=== PATIENT | male | born 1945 | race Caucasian/White ===

== ENCOUNTER 2021-02-26 17:45 | Inpatient (IN) | payer MEDICARE, OTHER ==
[2021-02-26] MEDS ORDERED: SODIUM CHLORIDE 0.9% 1,000 ML IV STA (18:56)
--- NOTE | 2021-02-26 19:05 | ED ---
General Adult HPI - General Chief complaint: Shortness of Breath Stated complaint: Covid+/low o2/sent by pcp Time Seen by Provider: 02/26/21 18:00 Source: patient, family, RN notes reviewed, old records reviewed Mode of arrival: wheelchair Limitations: no limitations - History of Present Illness Initial comments: This is a 75-year-old male who presents emergency Department stating he's been feeling extremely fatigued ever since he had cold. 11 days ago. Patient states he didn't have any symptoms at that time he got tested because his got test ed. Patient states his eventually . Patient states she's very anxious and paranoid about the disease. Patient states she's not having any pain anywhere he states there is mild shortness of breath. Patient states he feels so fatigued he finds that even difficult to get out of bed. Patient states it's not weakness is just tired. Patient denies headache patient denies numbness weakness. Patient denies lightheadedness dizziness or near syncopal episode. - Related Data Allergies Allergy/AdvReac Type Severity Reaction Status Date / Time carisoprodol [From [facility]] Allergy Anaphylaxis Verified 02/26/21 17:56 Review of Systems ROS Statement: Those systems with pertinent positive or pertinent negative responses have been documented in the HPI. ROS Other: All systems not noted in ROS Statement are negative. Past Medical History Past Medical History: Unable to Obtain History of Any Multi-Drug Resistant Organisms: None Reported Past Surgical History: Unable to Obtain Past Psychological History: No Psychological Hx Reported Smoking Status: Never smoker Past Alcohol Use History: None Reported Past Drug Use History: None Reported General Exam - General Exam Comments Initial Comments: GENERAL: Patient is well-developed and well-nourished. Patient is nontoxic and well- hydrated and is in mild distress. ENT: Neck is soft and supple. No significant lymphadenopathy is noted. Oropharynx is clear. Moist mucous membranes. Neck has full range of motion without eliciting any pain. EYES: The sclera were anicteric and conjunctiva were pink and moist. Extraocular movements were intact and pupils were equal round and reactive to light. Eyelids were unremarkable. PULMONARY: Unlabored respirations. Good breath sounds bilaterally. No audible rales rhonchi or wheezing was noted. CARDIOVASCULAR: There is a regular rate and rhythm without any murmurs gallops or rubs. ABDOMEN: Soft and nontender with normal bowel sounds. SKIN: Skin is clear with no lesions or rashes and otherwise unremarkable. NEUROLOGIC: Patient is alert and oriented x3. Cranial nerves II through XII are grossly intact. Motor and sensory are also intact. Normal speech, volume and content. Symmetrical smile. MUSCULOSKELETAL: Normal extremities with adequate strength and full range of motion. No lower extremity swelling or edema. No calf tenderness. LYMPHATICS: No significant lymphadenopathy is noted PSYCHIATRIC: Normal psychiatric evaluation. Limitations: no limitations Course Vital Signs 02/26/21 02/26/21 02/26/21 17:54 18:09 19:02 Temperature 97.6 F Pulse Rate 60 55 L Respiratory 18 16 18 Rate Blood Pressure 121/70 173/91 O2 Sat by Pulse 95 95 Oximetry Medical Decision Making - Medical Decision Making EKG shows sinus bradycardia 54 bpm MS interval is 342 QRS is 98 QT interval is 488 QTC is 462. Patient's EKG shows no ST segment elevation or depression. Chest x-ray shows bilateral pneumonia. I think bacterial secondary to the white count and the left shift. I spoke with Dr. Albert he agreed to admit the patient admitted the patient I wrote admitting orders - Lab Data Result diagrams: 02/26/21 19:00 02/26/21 19:00 Lab Results 02/26/21 02/26/21 02/26/21 Range/Units 19:00 19:00 19:00 WBC 11.3 H (3.8-10.6) k/uL RBC 4.64 (4.30-5.90) m/uL Hgb 14.2 (13.0-17.5) gm/dL Hct 44.9 (39.0-53.0) % MCV 96.8 (80.0-100.0) fL MCH 30.6 (25.0-35.0) pg MCHC 31.6 (31.0-37.0) g/dL RDW 13.7 (11.5-15.5) % Plt Count 356 (150-450) k/uL MPV 6.8 Neutrophils % 86 % Lymphocytes % 7 % Monocytes % 5 % Eosinophils % 1 % Basophils % 0 % Neutrophils # 9.7 H (1.3-7.7) k/uL Lymphocytes # 0.8 L (1.0-4.8) k/uL Monocytes # 0.6 (0-1.0) k/uL Eosinophils # 0.1 (0-0.7) k/uL Basophils # 0.0 (0-0.2) k/uL Sodium 136 L (137-145) mmol/L Potassium 4.2 (3.5-5.1) mmol/L Chloride 107 (98-107) mmol/L Carbon Dioxide 22 (22-30) mmol/L Anion Gap 7 mmol/L BUN 26 H (9-20) mg/dL Creatinine 1.45 H (0.66-1.25) mg/dL Est GFR (CKD-EPI)AfAm 54 (>60 ml/min/1.73 sqM) Est GFR (CKD-EPI)NonAf 47 (>60 ml/min/1.73 sqM) Glucose 107 H (74-99) mg/dL Calcium 9.0 (8.4-10.2) mg/dL Magnesium 2.1 (1.6-2.3) mg/dL Total Bilirubin 0.7 (0.2-1.3) mg/dL AST 27 (17-59) U/L ALT 22 (4-49) U/L Alkaline Phosphatase 97 (38-126) U/L Troponin I <0.012 (0.000-0.034) ng/mL Total Protein 5.9 L (6.3-8.2) g/dL Albumin 3.1 L (3.5-5.0) g/dL Disposition Clinical Impression: Pneumonia, Renal insufficiency Disposition: ADMITTED IP TO THIS HOSP Referrals: Rodrigo Pace MD [Primary Care Provider] - 1-2 days Time of Disposition: 20:15
[2021-02-26 19:16] LABS: Basophils % (A) 0 %; Eosinophils # (A) 0.1 k/uL (0-0.7); Eosinophils % (A) 1 %; HCT 44.9 % (39.0-53.0); HGB 14.2 gm/dL (13.0-17.5); Lymphocytes # (A) 0.8 k/uL (1.0-4.8); Lymphocytes % (A) 7 %; MCH 30.6 pg (25.0-35.0); MCHC 31.6 g/dL (31.0-37.0); MCV 96.8 fL (80.0-100.0); Mean Platelet Volume 6.8; Monocytes # (A) 0.6 k/uL (0-1.0); Monocytes % (A) 5 %; Neutrophils # (A) 9.7 k/uL (1.3-7.7); Neutrophils % (A) 86 %; Platelet Count 356 k/uL (150-450); RBC 4.64 m/uL (4.30-5.90); RDW 13.7 % (11.5-15.5); WBC 11.3 k/uL (3.8-10.6)
[2021-02-26 19:31] LABS: Albumin 3.1 g/dL (3.5-5.0); Magnesium 2.1 mg/dL (1.6-2.3); Potassium 4.2 mmol/L (3.5-5.1); Total Bilirubin 0.7 mg/dL (0.2-1.3); Total Protein 5.9 g/dL (6.3-8.2)
[2021-02-26 19:37] LABS: Appearance,Urine Clear (Clear); Bilirubin,Urine Negative (Negative); Blood,Urine Negative (Negative); Color,Urine Yellow; Glucose,Urine (UA) Negative (Negative); Ketones,Urine Negative (Negative); Leukocyte Esterase,Urine Negative (Negative); Nitrite,Urine Negative (Negative); Protein,Urine Trace (Negative); Specific Gravity,Urine 1.023 (1.001-1.035); Urobilinogen,Urine <2.0 mg/dL (<2.0)
--- NOTE | 2021-02-26 20:00 | XR ---
EXAM: XR Chest, 2 Views CLINICAL HISTORY: ITS.REASON XR Reason: difficulty breathing TECHNIQUE: Frontal and lateral views of the chest. COMPARISON: None FINDINGS: Hardware: None. Lungs/pleura: Patchy opacities bilaterally. No pleural effusion or pneumothorax. Heart/mediastinum: Borderline size of the cardiac silhouette. Soft tissues: Unremarkable. Bones: No acute fracture. Degenerative changes of the spine. Degenerative changes of the left shoulder partially visualized. Upper abdomen: Normal. IMPRESSION: Patchy opacities bilaterally, concerning for an infectious/inflammatory process.
[2021-02-26] MEDS ORDERED: cefTRIAXone IN SWFI 1,000 MG/10 ML SYRINGE IVP STA (20:06)
[2021-02-26] MEDS ORDERED: PNEUMONIA PROTOCOL UTILIZED 1 EACH MISC PO PRN (20:15)
[2021-02-26] MEDS ORDERED: AZITHROMYCIN 500 MG in SODIUM CHLORIDE 0.9% 250 ML IVPB STA (20:15)
--- NOTE | 2021-02-27 01:22 | P.HPIM ---
History of Present Illness H&P Date: 02/26/21 Patient is a 75-year-old male with a PMH of hypertension, hyperlipidemia, BPH, and recently diagnosed Covid 19 presented to the emergency room with complaints of fatigue and lethargy. Patient notes that he was tested for Covid initially 11 days ago after his had tested positive who subsequently a few days later. He notes that he was initially asymptomatic but that over the past few days has had gradually worsening fatigue when he is no longer able to perform his ADLs. He denied experiencing cough, chest pain, shortness of breath, fever, anosmia, nausea, or vomiting. He also denied focal weakness but reports that he does not feel he that he has the energy to get out of bed. He also denied headaches, visual disturbances, dizziness, leg pain, leg swelling, or abdominal pain. In the emergency room, the patient underwent an extensive evaluation with vitals BP 121/70, pulse 60, SpO2 95% on room air, and a temperature of 97.6F. Chest x-ray revealed patchy bilateral opacities. EKG revealed sinus bradycardia with first-degree AV block at 54 bpm along with the prolonged QT. Laboratory evaluation was remarkable for WBC count 11.3, BUN 26, creatinine 1.45, troponin less than 0.012, and an unremarkable UA. Review of Systems Pertinent positives and negatives as discussed in HPI, a complete review of systems was performed and all other systems are negative. Past Medical History Past Medical History: Unable to Obtain History of Any Multi-Drug Resistant Organisms: None Reported Past Surgical History: Unable to Obtain Past Psychological History: No Psychological Hx Reported Smoking Status: Never smoker Past Alcohol Use History: None Reported Past Drug Use History: None Reported Medications and Allergies Home Medications Medication Instructions Recorded Confirmed Type Amiodarone HCl [Pacerone] 100 mg PO DAILY 02/26/21 02/26/21 History Atorvastatin [Lipitor] 40 mg PO HS 02/26/21 02/26/21 History Clopidogrel Bisulfate [Plavix] 75 mg PO DAILY 02/26/21 02/26/21 History Isosorbide Mononitrate ER [Imdur] 30 mg PO DAILY 02/26/21 02/26/21 History Metoprolol Succinate [Toprol XL] 25 mg PO DAILY 02/26/21 02/26/21 History Omeprazole 20 mg PO DAILY 02/26/21 02/26/21 History Ranolazine [Ranolazine ER] 500 mg PO BID 02/26/21 02/26/21 History Tamsulosin HCl [Flomax] 0.4 mg PO HS 02/26/21 02/26/21 History buPROPion HCL [Wellbutrin XL] 300 mg PO DAILY 02/26/21 02/26/21 History Allergies Allergy/AdvReac Type Severity Reaction Status Date / Time carisoprodol [From [facility]] Allergy Anaphylaxis Verified 02/26/21 20:32 Physical Exam Vitals: Vital Signs Temp Pulse Resp BP Pulse Ox 02/26/21 21:01 72 16 149/66 95 02/26/21 19:02 55 L 18 173/91 95 02/26/21 18:09 16 02/26/21 17:54 97.6 F 60 18 121/70 95 Intake and Output 02/26/21 02/26/21 02/26/21 06:59 14:59 22:59 Other: Weight 120.202 kg General: non toxic, no distress, appears at stated age, obese Derm: no unusual rashes/lesions no unusual ecchymoses, warm, dry Head: atraumatic, normocephalic, symmetric Eyes: EOMI, no lid lag, anicteric sclera, pupils equal round reactive to light ENT: Nose and ears atraumatic, no thrush, no pharyngeal erythema Neck: No thyromegaly, no cervical lymphadenopathy, trachea midline, supple Mouth: no lip lesion, mucus membranes moist Cardiovascular: S1S2 reg, no murmur, positive posterior tibial pulse bilateral, no edema, capillary refill less than 2 seconds Lungs: CTA bilateral, no rhonchi, no rales , no accessory muscle use Abdominal: soft, nontender to palpation, no guarding, no appreciable organomegaly, normal bowel sounds Ext: no gross muscle atrophy, muscle strength 5 out of 5 in all 4 extremities grossly, no contractures, Neuro: CN II-XI grossly intact, light touch intact all 4 extremities, finger to nose within normal limits, Psych: Alert, oriented, appropriate affect Results CBC & Chem 7: 02/26/21 19:00 02/26/21 19:00 Labs: Abnormal Lab Results - Last 24 Hours (Table) 02/26/21 02/26/21 02/26/21 Range/Units 19:00 19:00 19:31 WBC 11.3 H (3.8-10.6) k/uL Neutrophils # 9.7 H (1.3-7.7) k/uL Lymphocytes # 0.8 L (1.0-4.8) k/uL Sodium 136 L (137-145) mmol/L BUN 26 H (9-20) mg/dL Creatinine 1.45 H (0.66-1.25) mg/dL Glucose 107 H (74-99) mg/dL Total Protein 5.9 L (6.3-8.2) g/dL Albumin 3.1 L (3.5-5.0) g/dL Urine Protein Trace H (Negative) Assessment and Plan Plan: Lethargy, bilateral pneumonia, likely secondary to COVID -Not requiring supplemental oxygen -Patient does not qualify for Decadron, Remdesivir, or Tocilizumab -Monitor inflammatory markers -Obtain procalcitonin -C/w Azithromycin and Ceftriaxone pending procalcitonin levels Kidney injury, acute versus chronic -Monitor BMP -IV fluids Chronic conditions: Hypertension, hyperlipidemia, BPH -Continue home meds DVT prophylaxis -Lovenox The patient is admitted with an anticipated greater than 2 midnight stay for evaluation of lethargy CODE STATUS: Full Code Discussed with: Patient Anticipated discharge date: 02/[address]: Home A total of 40 minutes was spent on the care of this complex patient more than 50% of the time was spent in counseling and care coordination.
[2021-02-27] MEDS: SODIUM CHLORIDE 0.9% 1,000 ML IV SCH ×2 (02:22→17:33)
--- NOTE | 2021-02-27 07:20 | XR ---
EXAMINATION TYPE: XR chest 1V DATE OF EXAM: 02/27/2021 COMPARISON: 02/26/2021 HISTORY: 75-year-old male COVID pneumonia TECHNIQUE: Single frontal view of the chest is obtained. FINDINGS: Heart upper limits of normal in size. Patchy bilateral opacities, right greater than left show no sig nificant change. No pleural effusion. Loss of the subacromial space on the right compatible with tax compliance agent keren full-thickness rotator cuff tear. Degenerative shoulder. IMPRESSION: Continued patchy bilateral pulmonary pneumonia.
[2021-02-27 07:44] LABS: ALT 18 U/L (4-49); AST 23 U/L (17-59); African American GFR (CKD) 62 (>60 ml/min/1.73 sqM); Albumin 2.6 g/dL (3.5-5.0); Alkaline Phosphatase 80 U/L (38-126); Anion Gap 7 mmol/L; Blood Urea Nitrogen 23 mg/dL (9-20); C Reactive Protein 4.7 mg/dL (<1.0); Calcium 8.7 mg/dL (8.4-10.2); Carbon Dioxide 19 mmol/L (22-30); Chloride 112 mmol/L (98-107); Globulin 2.5 g/dL; Glucose 83 mg/dL (74-99); Non-African American GFR(CKD) 54 (>60 ml/min/1.73 sqM); Potassium 4.4 mmol/L (3.5-5.1); Sodium 138 mmol/L (137-145); Total Bilirubin 0.5 mg/dL (0.2-1.3); Total Protein 5.1 g/dL (6.3-8.2)
[2021-02-27] MEDS: CLOPIDOGREL 75 MG TAB PO SCH (08:58)
[2021-02-27] MEDS: ISOSORBIDE MONONITRATE ER 30 MG TAB.ER.24H PO SCH (08:59)
[2021-02-27] MEDS: CHOLECALCIFEROL 25 MCG (1000 IU) TABLET PO SCH (08:59)
[2021-02-27] MEDS: ASCORBIC ACID 500 MG TAB PO SCH (08:59)
[2021-02-27] MEDS: PANTOPRAZOLE 40 MG TABLET PO SCH (08:59)
[2021-02-27] MEDS: ZINC SULFATE 220 MG CAP PO SCH (08:59)
[2021-02-27] MEDS: AMIODARONE 100 MG TAB PO SCH (08:59)
[2021-02-27] MEDS ORDERED: ENOXAPARIN 40 MG/0.4 ML SYRINGE SQ SCH (09:00)
[2021-02-27 09:46] LABS: HCT 40.2 % (39.6-50.0); HGB 12.9 g/dL (13.0-17.0); MCH 30.9 pg (27.0-32.0); MCHC 32.1 g/dL (32.0-37.0); MCV 96.2 fL (80.0-97.0); Mean Platelet Volume 9.2 fL (9.5-12.2); Platelet Count 297 X 10*3/uL (140-440); RBC 4.18 X 10*6/uL (4.40-5.60); RDW 13.1 % (11.5-14.5); WBC 8.84 X 10*3/uL (4.50-10.00)
--- NOTE | 2021-02-27 10:42 | P.PN ---
Subjective Progress Note Date: 02/27/21 Patient is complaining of shortness of breath this morning. He is satting 92- 93% on room air. Lungs are clear to auscultation bilaterally. He denies any significant cough. He appeared anxious. Objective - Vital Signs Vital signs: Vital Signs Temp 98.5 F 02/27/21 09:52 Pulse 61 02/27/21 09:52 Resp 18 02/27/21 09:52 BP 161/92 02/27/21 09:52 Pulse Ox 92 L 02/27/21 09:52 Intake & Output 02/26/21 02/27/21 02/27/21 18:59 06:59 18:59 Output Total 350 Balance -350 Weight 120.202 kg 120.202 kg Output: Urine 350 Other: Voiding Method Urinal Urinal - Exam General: The patient is awake and alert, in no distress Eye: there is normal conjunctiva bilaterally. Neck: The neck is supple, there is no JVD. Cardiovascular: Normal S1-S2, no S3-S4, no murmurs. Respiratory: Lungs clear to auscultation bilaterally Gastrointestinal: Abdomen is soft, nontender Musculoskeletal: There is no pedal edema. Neurological:. Speech is normal. Skin: Skin is warm and dry - Labs CBC & Chem 7: 02/27/21 06:13 02/27/21 06:13 Labs: Abnormal Lab Results - Last 24 Hours (Table) 02/26/21 02/26/21 02/26/21 Range/Units 19:00 19:00 19:31 WBC 11.3 H (3.8-10.6) k/uL RBC (4.40-5.60) X 10*6/uL Hgb (13.0-17.0) g/dL MPV (9.5-12.2) fL Neutrophils # 9.7 H (1.3-7.7) k/uL Lymphocytes # 0.8 L (1.0-4.8) k/uL Sodium 136 L (137-145) mmol/L Chloride (98-107) mmol/L Carbon Dioxide (22-30) mmol/L BUN 26 H (9-20) mg/dL Creatinine 1.45 H (0.66-1.25) mg/dL Glucose 107 H (74-99) mg/dL C-Reactive Protein (<1.0) mg/dL Total Protein 5.9 L (6.3-8.2) g/dL Albumin 3.1 L (3.5-5.0) g/dL Urine Protein Trace H (Negative) 02/27/21 02/27/21 Range/Units 06:13 06:13 WBC (3.8-10.6) k/uL RBC 4.18 L (4.40-5.60) X 10*6/uL Hgb 12.9 L (13.0-17.0) g/dL MPV 9.2 L (9.5-12.2) fL Neutrophils # (1.3-7.7) k/uL Lymphocytes # (1.0-4.8) k/uL Sodium (137-145) mmol/L Chloride 112 H (98-107) mmol/L Carbon Dioxide 19 L (22-30) mmol/L BUN 23 H (9-20) mg/dL Creatinine 1.30 H (0.66-1.25) mg/dL Glucose (74-99) mg/dL C-Reactive Protein 4.7 H (<1.0) mg/dL Total Protein 5.1 L (6.3-8.2) g/dL Albumin 2.6 L (3.5-5.0) g/dL Urine Protein (Negative) Assessment and Plan Assessment: This is a 75-year-old male with past medical history noted below who presented to the emergency room with complaint of fatigue and lethargy. Patient was evaluated in the ER and admitted to the hospital for further management of his medical problems noted below. 1. COVID-19 pneumonia: Provision of test done at outside facility 11 days prior to presentation. I would order repeat screening test. No evidence of hypoxia. Patient is not a candidate for Remdesivir. Continue vitamin C, vitamin D, zinc, and melatonin. Chest x-ray with bilateral infiltrate. Concern about underlying bacterial pneumonia covered with IV ceftriaxone awaiting pro-calcitonin 2. Acute kidney injury with suspected underlying CK D, continue gentle IV fluid hydration with normal saline at 75 mL per hour. Repeat lab work in the morning. 3. Coronary artery disease with history of stent placement, continue medical management 4. Paroxysmal atrial fibrillation on anticoagulation with Eliquis 5. Chronic medical problems: Hyperlipidemia, BPH Today, I reviewed his medication list and lab work results. I asked pharmacy to confirm Eliquis as one of his home medication. Continue current regimen otherwise. Supportive care. Awaiting inflammatory markers.
[2021-02-27] MEDS: buPROPion XL 300 MG TAB.ER.24H PO SCH (11:15)
[2021-02-27] MEDS: METOPROLOL SUCCINATE (ER) 25 MG TAB.ER.24H PO SCH (11:15)
[2021-02-27] MEDS: RANOLAZINE 500 MG TAB.ER.12H PO SCH ×2 (13:30→19:47)
[2021-02-27] MEDS: ALBUTEROL HFA INHALER INHALATION PRN ×2 (16:33→20:52)
[2021-02-27] MEDS: APIXABAN 5 MG TAB PO SCH (19:45)
[2021-02-27] MEDS ORDERED: MELATONIN 5 MG TABLET PO SCH (21:00)
[2021-02-27] MEDS ORDERED: TAMSULOSIN 0.4 MG CAP.ER.24H PO SCH (21:00)
[2021-02-27] MEDS ORDERED: ATORVASTATIN 40 MG TAB PO SCH (21:00)
[2021-02-28 00:51] LABS: Ferritin 127.5 ng/mL (22.0-322.0)
[2021-02-28] MEDS: SODIUM CHLORIDE 0.9% 1,000 ML IV SCH ×2 (05:29→17:16)
[2021-02-28] MEDS: ALBUTEROL HFA INHALER INHALATION PRN ×2 (07:14→11:07)
[2021-02-28] MEDS: CLOPIDOGREL 75 MG TAB PO SCH (08:32)
[2021-02-28] MEDS: PANTOPRAZOLE 40 MG TABLET PO SCH (08:32)
[2021-02-28] MEDS: RANOLAZINE 500 MG TAB.ER.12H PO SCH (08:32)
[2021-02-28] MEDS: APIXABAN 5 MG TAB PO SCH (08:33)
[2021-02-28] MEDS: ZINC SULFATE 220 MG CAP PO SCH (08:33)
[2021-02-28] MEDS: ISOSORBIDE MONONITRATE ER 30 MG TAB.ER.24H PO SCH (08:33)
[2021-02-28] MEDS: buPROPion XL 300 MG TAB.ER.24H PO SCH (08:33)
[2021-02-28] MEDS: CHOLECALCIFEROL 25 MCG (1000 IU) TABLET PO SCH (08:33)
[2021-02-28] MEDS: ASCORBIC ACID 500 MG TAB PO SCH (08:33)
[2021-02-28] MEDS: AMIODARONE 100 MG TAB PO SCH (08:33)
[2021-02-28] MEDS: METOPROLOL SUCCINATE (ER) 25 MG TAB.ER.24H PO SCH (08:35)
[2021-02-28 08:36] LABS: African American GFR (CKD) 69 (>60 ml/min/1.73 sqM); Anion Gap 6 mmol/L; Blood Urea Nitrogen 19 mg/dL (9-20); Calcium 8.9 mg/dL (8.4-10.2); Carbon Dioxide 21 mmol/L (22-30); Chloride 109 mmol/L (98-107); Glucose 83 mg/dL (74-99); Non-African American GFR(CKD) 60 (>60 ml/min/1.73 sqM); Potassium 4.1 mmol/L (3.5-5.1); Sodium 136 mmol/L (137-145)
--- NOTE | 2021-02-28 15:22 | P.DS ---
Providers Date of admission: 02/26/21 20:15 Expected date of discharge: 02/28/21 Attending physician: Sandra Albert MD Primary care physician: Rodrigo Bhatia [facility] Course: This is a 75-year-old male with past medical history noted below who presented to the emergency room with complaint of fatigue and lethargy. Patient was evaluated in the ER and admitted to the hospital for further management of his medical problems noted below. 1. COVID-19 pneumonia: original test done at outside facility 11 days prior to presentation. repeat screening test here in the hospital was negative. No evidence of hypoxia. CRP only slightly elevated. Patient is not a candidate for Remdesivir. Continue vitamin C, vitamin D, zinc, and melatonin. Chest x-ray with bilateral infiltrate. Patient was started on antibiotics with concern about underlying pneumonia but progressive troponin was normal. No indication for antibiotic at this time. 2. Acute kidney injury with suspected underlying CKD, resolved with IV fluid hydration. Creatinine back to normal. 3. Coronary artery disease with history of stent placement, continue medical management 4. Paroxysmal atrial fibrillation on anticoagulation with Eliquis 5. Chronic medical problems: Hyperlipidemia, BPH Patient will be discharged in a stable condition. He is able to ambulate with no difficulty and no hypoxia. Continue albuterol as needed at home. Patient Condition at Discharge: Stable Plan - Discharge Summary Discharge Rx Participant: No New Discharge Prescriptions: New Zinc Sulfate [Orazinc] 220 mg PO DAILY #30 cap Apixaban [Eliquis] 5 mg PO BID tab Melatonin 5 mg PO HS #30 tablet Albuterol Inhaler [Ventolin Hfa Inhaler] 2 puff INHALATION RT-QID PRN #1 inhaler PRN Reason: Shortness Of Breath Or Wheezing Ascorbic Acid [Vitamin C] 1,000 mg PO DAILY #30 tab Cholecalciferol [Vitamin D3 (25 Mcg = 1000 Iu)] 75 mcg PO DAILY #60 tablet Continue Omeprazole 20 mg PO DAILY Clopidogrel Bisulfate [Plavix] 75 mg PO DAILY Atorvastatin [Lipitor] 40 mg PO HS Ranolazine [Ranolazine ER] 500 mg PO BID Amiodarone HCl [Pacerone] 100 mg PO DAILY buPROPion HCL [Wellbutrin XL] 300 mg PO DAILY Metoprolol Succinate [Toprol XL] 25 mg PO DAILY Isosorbide Mononitrate ER [Imdur] 30 mg PO DAILY Tamsulosin HCl [Flomax] 0.4 mg PO HS Discharge Medication List Amiodarone HCl [Pacerone] 100 mg PO DAILY 02/26/21 [History] Atorvastatin [Lipitor] 40 mg PO HS 02/26/21 [History] Clopidogrel Bisulfate [Plavix] 75 mg PO DAILY 02/26/21 [History] Isosorbide Mononitrate ER [Imdur] 30 mg PO DAILY 02/26/21 [History] Metoprolol Succinate [Toprol XL] 25 mg PO DAILY 02/26/21 [History] Omeprazole 20 mg PO DAILY 02/26/21 [History] Ranolazine [Ranolazine ER] 500 mg PO BID 02/26/21 [History] Tamsulosin HCl [Flomax] 0.4 mg PO HS 02/26/21 [History] buPROPion HCL [Wellbutrin XL] 300 mg PO DAILY 02/26/21 [History] Albuterol Inhaler [Ventolin Hfa Inhaler] 2 puff INHALATION RT-QID PRN #1 inhaler 02/28/21 [Rx] Apixaban [Eliquis] 5 mg PO BID tab 02/28/21 [Rx] Ascorbic Acid [Vitamin C] 1,000 mg PO DAILY #30 tab 02/28/21 [Rx] Cholecalciferol [Vitamin D3 (25 Mcg = 1000 Iu)] 75 mcg PO DAILY #60 tablet 02/28/21 [Rx] Melatonin 5 mg PO HS #30 tablet 02/28/21 [Rx] Zinc Sulfate [Orazinc] 220 mg PO DAILY #30 cap 02/28/21 [Rx] Follow up Appointment(s)/Referral(s): Rodrigo Pace MD [Primary Care Provider] - 1-2 days Discharge Disposition: HOME SELF-CARE
[2021-02-28 17:38] VITALS: BP 144/89; PULSE 60; RESP 16; TEMP 98.2
== END 2021-02-28 19:45 | disposition home or self-care (01) | DRG 177 ==
LOC: EC 17:45 → 4SSUR 20:15
PROVIDERS: ADMIT Internal Medicine; ATTEND Internal Medicine
DX: U07.1 COVID-19 (principal); J12.82 Pneumonia due to coronavirus disease 2019; N17.9 Acute kidney failure, unspecified; I48.0 Paroxysmal atrial fibrillation; N40.0 Benign prostatic hyperplasia without lower urinary tract symptoms; E78.5 Hyperlipidemia, unspecified; I44.0 Atrioventricular block, first degree; I25.10 Atherosclerotic heart disease of native coronary artery without angina pectoris; I12.9 Hypertensive chronic kidney disease with stage 1 through stage 4 chronic kidney disease, or unspecified chronic kidney disease; N18.9 Chronic kidney disease, unspecified; Z79.01 Long term (current) use of anticoagulants; Z79.02 Long term (current) use of antithrombotics/antiplatelets; Z79.899 Other long term (current) drug therapy; Z95.5 Presence of coronary angioplasty implant and graft; Z88.8 Allergy status to other drugs, medicaments and biological substances
CPT/HCPCS: 36415; 71045; 71046; 80048; 80053; 81003; 82728; 83735; 84145; 84484; 85025; 85027; 86140; 87040; 87070; 87205; 87635; 93005; 94640; 99285

== ENCOUNTER 2024-05-27 00:02 | Inpatient (IN) | payer MEDICARE, OTHER ==
--- NOTE | 2024-05-27 00:37 | ED ---
Abdominal Pain HPI - General Chief Complaint: Abdominal Pain Stated Complaint: Abdominal Pain, Vomiting Time Seen by Provider: 05/27/24 00:30 Source: patient, RN notes reviewed, old records reviewed Mode of arrival: ambulatory Limitations: no limitations - History of Present Illness Initial Comments: This is a 79-year-old male to the ER for evaluation abdominal pain severe abdominal pain here in the ER with nausea vomiting history of gastric bypass hi story of severe abdominal pain history of recurrent abdominal pain concern for recurrent small bowel obstruction MD Complaint: abdominal pain, other (Nausea vomiting) -: hour(s), days(s) Location: diffuse, epigastric, suprapubic Radiation: epigastric, suprapubic Migration to: epigastric, suprapubic Severity: moderate Severity scale (1-10): 6 Quality: aching, fullness Consistency: constant Improves With: nothing Worsens With: nothing Context: recent surgery/procedure Associated Symptoms: nausea, vomiting Treatments Prior to Arrival: other - Related Data Home Medications Medication Instructions Recorded Confirmed Amiodarone HCl [Pacerone] 100 mg PO DAILY 02/26/21 05/27/24 Atorvastatin [Lipitor] 40 mg PO HS 02/26/21 05/27/24 Metoprolol Succinate [Toprol XL] 25 mg PO DAILY 02/26/21 05/27/24 Omeprazole 20 mg PO BID 02/26/21 05/27/24 Tamsulosin HCl [Flomax] 0.4 mg PO HS 02/26/21 05/27/24 Cholecalciferol [Vitamin D3 (125 125 mcg PO DAILY 05/27/24 05/27/24 Mcg = 5000 Iu)] Fluticasone Nasal [place] [Flonase 2 spr EA NOSTRIL DAILY PRN 05/27/24 05/27/24 Nasal [place]] Ipratropium Esko 0.06%Nasal 2 spray EA NOSTRIL TID PRN 05/27/24 05/27/24 [Atrovent Nasal 0.06%] Mirtazapine [Remeron] 15 mg PO HS 05/27/24 05/27/24 Plecanatide [Trulance] 3 mg PO HS 05/27/24 05/27/24 Vitamin A(Unknown Dose) 1 cap PO DAILY 05/27/24 05/27/24 buPROPion HCL [Wellbutrin XL] 150 mg PO DAILY 05/27/24 05/27/24 hydrOXYzine HCL [Atarax] 25 mg PO HS 05/27/24 05/27/24 traZODone HCL [Desyrel] 50 mg PO HS 05/27/24 05/27/24 Previous Rx's Medication Instructions Recorded Apixaban [Eliquis] 5 mg PO BID tab 02/28/21 Zinc Sulfate [Orazinc] 220 mg PO DAILY #30 cap 02/28/21 Allergies Allergy/AdvReac Type Severity Reaction Status Date / Time carisoprodol [From Soma] Allergy Anaphylaxis Verified 05/27/24 11:45 Review of Systems ROS Statement: Those systems with pertinent positive or pertinent negative responses have been documented in the HPI. ROS Other: All systems not noted in ROS Statement are negative. Past Medical History Past Medical History: No Reported History, Coronary Artery Disease (CAD), Chest Pain / Angina History of Any Multi-Drug Resistant Organisms: None Reported Past Surgical History: Unable to Obtain, Bariatric Surgery, Heart Catheterizati on With Stent, Joint Replacement Additional Past Surgical History / Comment(s): right knee replacement, bariatric 2000, bowel blockage x2 Past Anesthesia/Blood Transfusion Reactions: No Reported Reaction Past Psychological History: No Psychological Hx Reported Smoking Status: Never smoker Past Alcohol Use History: None Reported Past Drug Use History: None Reported General Exam Limitations: no limitations General appearance: alert, in no apparent distress, anxious, in distress Head exam: Present: atraumatic, normocephalic, normal inspection Eye exam: Present: normal appearance, PERRL, EOMI. Absent: scleral icterus, conjunctival injection, periorbital swelling ENT exam: Present: normal exam, mucous membranes moist Neck exam: Present: normal inspection. Absent: tenderness, meningismus, lymphadenopathy Respiratory exam: Present: normal lung sounds bilaterally. Absent: respiratory distress, wheezes, rales, rhonchi, stridor Cardiovascular Exam: Present: regular rate, normal rhythm, normal heart sounds. Absent: systolic murmur, diastolic murmur, rubs, gallop, clicks GI/Abdominal exam: Present: soft, normal bowel sounds. Absent: distended, tenderness, guarding, rebound, rigid Extremities exam: Present: normal inspection, full ROM, normal capillary refill. Absent: tenderness, pedal edema, joint swelling, calf tenderness Back exam: Present: normal inspection Neurological exam: Present: alert, oriented X3, CN II-XII intact Psychiatric exam: Present: normal affect, normal mood Skin exam: Present: warm, dry, intact, normal color. Absent: rash Course Vital Signs 05/27/24 05/27/24 05/27/24 00:15 00:56 05:08 Temperature 97.5 F L 97.4 F L Pulse Rate 63 56 L 64 Respiratory 20 17 18 Rate Blood Pressure 131/65 120/73 O2 Sat by Pulse 99 94 L 97 Oximetry - Reevaluation(s) Reevaluation #1: 05/27/24 03:54 Medical records reviewed Reevaluation #2: 05/27/24 03:54 Patient symptoms improved Reevaluation #3: 05/27/24 03:54 Patient informed of results and questions answered Reevaluation #4: Was pt. sent in by a medical professional or institution ([facility], TELEPHONE MECHANIC, urgent care, hospital, or custodial...) When possible be specific @ -no Did you speak to anyone other than the patient for history (EMS, parent, family, police, friend...)? What history was obtained from this source @ -no Did you review nursing and triage notes (agree or disagree)? Why? @ -agree Are old charts reviewed (outside hosp., previous admission, EMS record, old EKG, old radiological studies, urgent care reports/EKG's, custodial records)? Report findings @ -yes Differential Diagnosis (chest pain, altered mental status, abdominal pain women, abdominal pain men, vaginal bleeding, weakness, fever, dyspnea, syncope, headache, dizziness, GI bleed, back pain, seizure, CVA, palpatations, mental health, musculoskeletal)? @ -prior EKG interpreted by me (3pts min.). @ -yes X-rays interpreted by me (1pt min.). @ -yes negative for acute disease CT interpreted by me (1pt min.). @ -no U/S interpreted by me (1pt. min.). @ -no What testing was considered but not performed or refused? (CT, X-rays, U/S, labs)? Why? @ -none What meds were considered but not given or refused? Why? @ -none Did you discuss the management of the patient with other professionals (professionals i.e. Dr., PA, TELEPHONE MECHANIC, lab, RT, psych nurse, home health care social worker, assistant hvac mechanic, teacher, tactical response group officer, case manager specialist)? Give summary @ -no Was smoking cessation discussed for >3mins.? @ -no Was critical care preformed (if so, how long)? @ -no Were there social determinants of health that impacted care today? How? (Homelessness, low income, unemployed, alcoholism, drug addiction, transportation, low edu. Level, literacy, decrease access to med. care, nursing home, rehab)? @ -none Was there de-escalation of care discussed even if they declined (Discuss DNR or withdrawal of care, Hospice)? DNR status @ -no What co-morbidities impacted this encounter? (DM, HTN, Smoking, COPD, CAD, Cancer, CVA, ARF, Chemo, Hep., AIDS, mental health diagnosis, sleep apnea, morbid obesity)? @ -none Was patient admitted / discharged? Hospital course, mention meds given and route, prescriptions, significant lab abnormalities, going to OR and other pertinent info. @ - 79 Male will be admitted for small bowel obstruction impending likely small bowel obstruction with history of gastric bypass Discharge Undiagnosed new problem with uncertain prognosis? @ -no Drug Therapy requiring intensive monitoring for toxicity (Heparin, Nitro, Insulin, Cardizem)? @ -no Were any procedures done? @ -no Diagnosis/symptom? @ - Acute, or Chronic, or Acute on Chronic? @ -Acute Uncomplicated (without systemic symptoms) or Complicated (systemic symptoms)? @ -Complicated Side effects of treatment? @ -no Exacerbation, Progression, or Severe Exacerbation? @ -exacerbation Poses a threat to life or bodily function? How? (Chest pain, [place], [place], pneumonia, PE, COPD, DKA, ARF, appy, cholecystitis, CVA, Diverticulitis, Homicidal, Suicidal, threat to staff... and all critical care pts) @ -yes extremes of age Reevaluation #5: Differential Abdominal Pain Men: Appendicitis, cholecystitis, diverticulosis, ischemic bowel, pancreatitis, hepatitis, UTI, gastroenteritis, AAA, incarcerated hernia, bowel obstruction, constipation, inflammatory bowel, hepatitis, peptic ulcer disease, splenic infarction, perforated viscus, testicular torsion, this is not meant to be an all-inclusive list - Consultations Consultation #1: Sound who agrees to admit the patient Medical Decision Making - Medical Decision Making 79 Male will be admitted for small bowel obstruction impending likely small bowel obstruction with history of gastric bypass - Lab Data Result diagrams: 05/28/24 05:00 05/28/24 05:00 Lab Results 05/27/24 05/27/24 05/27/24 Range/Units 00:50 00:50 00:50 WBC 13.7 H (3.8-10.6) k/uL RBC 4.40 (4.30-5.90) m/uL Hgb 13.3 (13.0-17.5) gm/dL Hct 42.0 (39.0-53.0) % MCV 95.4 (80.0-100.0) fL MCH 30.3 (25.0-35.0) pg MCHC 31.8 (31.0-37.0) g/dL RDW 13.1 (11.5-15.5) % Plt Count 282 (150-450) k/uL MPV 7.3 Neutrophils % 82 % Lymphocytes % 11 % Monocytes % 5 % Eosinophils % 1 % Basophils % 0 % Neutrophils # 11.2 H (1.3-7.7) k/uL Lymphocytes # 1.6 (1.0-4.8) k/uL Monocytes # 0.7 (0-1.0) k/uL Eosinophils # 0.1 (0-0.7) k/uL Basophils # 0.0 (0-0.2) k/uL Hypochromasia Slight PT 10.4 (10.0-12.5) sec INR 0.9 (<1.2) APTT 22.3 (22.0-30.0) sec Sodium 140 (137-145) mmol/L Potassium 4.3 (3.5-5.1) mmol/L Chloride 110 H (98-107) mmol/L Carbon Dioxide 20 L (22-30) mmol/L Anion Gap 10 mmol/L BUN 32 H (9-20) mg/dL Creatinine 1.45 H (0.66-1.25) mg/dL Est GFR (CKD-EPI)AfAm 53 (>60 ml/min/1.73 sqM) Est GFR (CKD-EPI)NonAf 46 (>60 ml/min/1.73 sqM) Glucose 168 H (74-99) mg/dL Estimated Ave Glu mg/dL mg/dL Hemoglobin A1c (<=6.0) % Lactic Ac Sepsis Rflx Plasma Lactic Acid [place] (0.7-2.0) mmol/L Calcium 10.1 (8.4-10.2) mg/dL Total Bilirubin 0.7 (0.2-1.3) mg/dL AST 37 (17-59) U/L ALT 34 (4-49) U/L Alkaline Phosphatase 133 H (38-126) U/L Total Protein 6.4 (6.3-8.2) g/dL Albumin 4.0 (3.5-5.0) g/dL Amylase 120 H (30-110) U/L Lipase 283 (23-300) U/L 05/27/24 05/27/24 05/27/24 Range/Units 00:50 00:50 01:11 WBC (3.8-10.6) k/uL RBC (4.30-5.90) m/uL Hgb (13.0-17.5) gm/dL Hct (39.0-53.0) % MCV (80.0-100.0) fL MCH (25.0-35.0) pg MCHC (31.0-37.0) g/dL RDW (11.5-15.5) % Plt Count (150-450) k/uL MPV Neutrophils % % Lymphocytes % % Monocytes % % Eosinophils % % Basophils % % Neutrophils # (1.3-7.7) k/uL Lymphocytes # (1.0-4.8) k/uL Monocytes # (0-1.0) k/uL Eosinophils # (0-0.7) k/uL Basophils # (0-0.2) k/uL Hypochromasia PT (10.0-12.5) sec INR (<1.2) APTT (22.0-30.0) sec Sodium (137-145) mmol/L Potassium (3.5-5.1) mmol/L Chloride (98-107) mmol/L Carbon Dioxide (22-30) mmol/L Anion Gap mmol/L BUN (9-20) mg/dL Creatinine (0.66-1.25) mg/dL Est GFR (CKD-EPI)AfAm (>60 ml/min/1.73 sqM) Est GFR (CKD-EPI)NonAf (>60 ml/min/1.73 sqM) Glucose (74-99) mg/dL Estimated Ave Glu mg/dL 131 mg/dL Hemoglobin A1c 6.2 H (<=6.0) % Lactic Ac Sepsis Rflx Y Plasma Lactic Acid [place] 2.4 H* (0.7-2.0) mmol/L Calcium (8.4-10.2) mg/dL Total Bilirubin (0.2-1.3) mg/dL AST (17-59) U/L ALT (4-49) U/L Alkaline Phosphatase (38-126) U/L Total Protein (6.3-8.2) g/dL Albumin (3.5-5.0) g/dL Amylase (30-110) U/L Lipase (23-300) U/L - Radiology Data Radiology results: report reviewed (CT of pelvis positive for developing small bowel obstruction), image reviewed Disposition Clinical Impression: Abdominal pain, SBO (small bowel obstruction), Status post bariatric surgery, Renal insufficiency Disposition: ADMITTED IP TO THIS [facility] Condition: Fair Is patient prescribed a controlled substance at d/c from ED?: No Time of Disposition: 02:50
[2024-05-27] MEDS: SODIUM CHLORIDE 0.9% 1,000 ML IV STA (00:52)
[2024-05-27] MEDS: PANTOPRAZOLE 40 MG/10 ML VIAL IVP STA (00:53)
[2024-05-27] MEDS: HYDROmorphone 0.5 MG/0.5 ML SYRINGE IVP STA (00:55)
[2024-05-27 01:00] LABS: Basophils % (A) 0 %; Eosinophils # (A) 0.1 k/uL (0-0.7); Eosinophils % (A) 1 %; HGB 13.3 gm/dL (13.0-17.5); Hypochromasia Slight; Lymphocytes # (A) 1.6 k/uL (1.0-4.8); Lymphocytes % (A) 11 %; MCH 30.3 pg (25.0-35.0); MCHC 31.8 g/dL (31.0-37.0); MCV 95.4 fL (80.0-100.0); Mean Platelet Volume 7.3; Monocytes # (A) 0.7 k/uL (0-1.0); Monocytes % (A) 5 %; Neutrophils # (A) 11.2 k/uL (1.3-7.7); Neutrophils % (A) 82 %; Platelet Count 282 k/uL (150-450); RDW 13.1 % (11.5-15.5); WBC 13.7 k/uL (3.8-10.6)
[2024-05-27 01:08] LABS: ALT 34 U/L (4-49); AST 37 U/L (17-59); African American GFR (CKD) 53 (>60 ml/min/1.73 sqM); Alkaline Phosphatase 133 U/L (38-126); Amylase 120 U/L (30-110); Anion Gap 10 mmol/L; Blood Urea Nitrogen 32 mg/dL (9-20); Calcium 10.1 mg/dL (8.4-10.2); Carbon Dioxide 20 mmol/L (22-30); Chloride 110 mmol/L (98-107); Glucose 168 mg/dL (74-99); Lipase 283 U/L (23-300); Non-African American GFR(CKD) 46 (>60 ml/min/1.73 sqM); Potassium 4.3 mmol/L (3.5-5.1); Sodium 140 mmol/L (137-145); Total Bilirubin 0.7 mg/dL (0.2-1.3); Total Protein 6.4 g/dL (6.3-8.2)
[2024-05-27 01:10] LABS: INR 0.9 (<1.2); Partial Thromboplastin Time 22.3 sec (22.0-30.0); Prothrombin Time 10.4 sec (10.0-12.5)
[2024-05-27] MEDS: ONDANSETRON 4 MG/2 ML VIAL IVP STA (02:16)
--- NOTE | 2024-05-27 02:22 | CT ---
EXAM: CT Abdomen and Pelvis Without Intravenous Contrast CLINICAL HISTORY: Abdominal pain TECHNIQUE: Axial computed tomography images of the abdomen and pelvis without intravenous contrast. CTDI is 24.1 mGy and DLP is 1671 mGy-cm. This CT exam was performed using one or more of the following dose reduction techniques: automated exposure control, adjustment of the mA and/or kV according to patient size, and/or use of iterative reconstruction technique. COMPARISON: No relevant prior studies available. FINDINGS: Limitations: There is respiratory artifact, which degrades image quality on multiple image slices. Lung bases: Unremarkable. No mass. No consolidation. ABDOMEN: Liver: Unremarkable. Gallbladder and bile ducts: Subcentimeter granular gallstones noted in the posterior gallbladder. No gallbladder wall thickening or biliary dilatation. The does appear to be granular gallstones in the cystic. Pancreas: Unremarkable. No ductal dilation. Spleen: Unremarkable. No splenomegaly. Adrenals: Unremarkable. No mass. Kidneys and ureters: Bilateral subcentimeter nephrolithiasis noted throughout both kidneys. No hydronephrosis or ureteral stones. Stomach and bowel: Postsurgical changes consistent with previous gastric bypass. The excluded gastric segment is moderately fluid and gas distended. No gastric mucosal thickening. Diffuse distention of the small bowel throughout the abdomen and pelvis with fluid distention proximally and distention with retained fecal appearing material in several small bowel loops in the inferior abdomen and pelvis. The small bowel is borderline dilated measuring up to 3.5 cm, excluding postoperative segments. No obvious focal transition point identified. Mild stool burden in the colon. No asymmetric colonic mucosal thickening. There is a supraumbilical ventral wall hernia containing a herniated small bowel loop no thickening, fat stranding or proximal small bowel obstruction noted at this level. PELVIS: Appendix: The appendix is not clearly evident. Bladder: Unremarkable. No stones. Reproductive: Unremarkable as visualized. ABDOMEN and PELVIS: Intraperitoneal space: Unremarkable. No free air. No significant fluid collection. Bones/joints: No acute fracture. No dislocation. Soft tissues: Presumed incidental fascial thickening with subtle internal fluid along the lateral aspect of the hip with a fluid collection measures only 1.2 x 2.5 x 3.1 cm. The overlying soft tissues are otherwise unremarkable. Vasculature: Atherosclerotic calcification of the aorta and iliac arteries. No dilation. Lymph nodes: Unremarkable. No enlarged lymph nodes. IMPRESSION: 1. Diffuse distention of the small bowel throughout the abdomen and pelvis with fluid distention proximally and distention with retained fecal appearing material in several small bowel loops in the inferior abdomen and pelvis. The small bowel is borderline dilated measuring up to 3.5 cm, excluding postoperative segments. No obvious focal transition point identified. Suspect enteritis with delayed transit through the small bowel. However, if there is concern for a subtle developing distal small bowel obstruction, serial radiographic evaluation or small bowel follow-through may provide additional information. 2. No free intraperitoneal fluid, abscess or pneumoperitoneum. 3. There is a supraumbilical ventral wall hernia containing a herniated small bowel loop no thickening, fat stranding or proximal small bowel obstruction noted at this level. The clinical significance of this finding is indeterminate and this may be incidental. 4. Granular gallstones in the gallbladder without CT evidence for gallbladder wall thickening or biliary dilatation. 5. Presumed incidental scattered nephrolithiasis throughout both kidneys without hydronephrosis or ureteral stones.
[2024-05-27] MEDS ORDERED: NALOXONE 0.4 MG/ML 1 ML VIAL IV PRN (02:52)
[2024-05-27] MEDS ORDERED: ONDANSETRON 4 MG/2 ML VIAL IVP PRN (02:52)
[2024-05-27] MEDS ORDERED: HYDROmorphone 1 MG/ML 1 ML SYRINGE IVP PRN (02:52)
[2024-05-27] MEDS: SODIUM CHLORIDE 0.9% 1,000 ML IV SCH (03:38)
--- NOTE | 2024-05-27 04:47 | P.HPIM ---
History of Present Illness H&P Date: 05/27/24 Chief Complaint: Abdominal Pain Patient is a 79-year-old male with PMH of CAD status post 3 stents, right knee replacement, Afib on eliquis, hypertension, hyperlipidemia, BPH, GERD presented to the ER with episode of sudden onset abdominal pain that started around 5 PM. Patient reports sharp, constant, 10 out of 10, centrally located abdominal pain radiating to both flanks which started after patient had a large meal. Patient notes no alleviating factors though he tried to go to the bathroom but was unable to have any bowel movements. He endorsed nausea and vomiting. He vomited 4-5 times including 1 time in the ER and reports it to be clear with no blood. At the time of interview, patient reports his abdominal pain has completely subsided but he continues to feel bloated and nauseated. Patient has a past surgical history of bariatric surgery in 1999. Patient reports previous episodes of similar type of abdominal pain in 2013 and 2015. Patient seems to be well-informed of complications such as small bowel obstruction caused secondary to bariatric surgery. Patient otherwise denies shortness of breath, chest pain, fever, chills, diarrhea and numbness or weakness in upper and lower extremities. Denies any recent illnesses or sick contacts. CT abdomen and pelvis shows diffuse distention of the small bowel throughout the abdomen and pelvis with fluid distention proximally and distention with retained fecal appearing material and several small bowel loops in the inferior abdomen and pelvis. Reports show there is a concern for a subtle developing distal small bowel obstruction. No free intraperitoneal fluid, no abscess or pneumoperitoneum. Laboratory evaluation shows lactic acid 2.4, WBC 13.7 with neutrophil count of 11.2, hemoglobin 13.3, hematocrit 42.0, sodium 140, potassium 4.3, chloride 110, bicarb 20, BUN 32, creatinine 1.45, EGFR 46, glucose 168, AST 37, ALT 34, alkaline phosphatase 133, amylase 120, lipase of 283. Vitals: Tmax 97.5 F, heart rate 46, respiration rate 17, BP 131/65, oxygen saturation 94% on room air Review of systems: Pertinent positives and negatives as discussed in HPI, a complete review of systems was performed and all other systems are negative. Social history: Tobacco: Non-smoker Alcohol: No alcohol Recreational drugs: No illicit drug use Travel: None Occupation: Retired Family History: Noncontributory Physical examination: Vital signs reviewed General: non toxic, no distress, appears at stated age, obese Derm: no unusual rashes/lesions, warm Head: atraumatic, normocephalic, symmetric Eyes: EOMI, no lid lag, anicteric sclera, pupils equal round reactive to light ENT: Nose and ears atraumatic Neck: No cervical lymphadenopathy, trachea midline, supple Mouth: no lip lesion, mucus membranes moist Cardiovascular: S1S2 reg, no murmur, positive dorsalis pedis pulse bilateral, no edema Lungs: CTA bilateral, no rhonchi, no rales, no accessory muscle use Abdominal: Mild distention, nontender to palpation, no guarding, bowel sounds hyperactive Ext: muscle strength 5 out of 5 in all 4 extremities grossly, no gross muscle atrophy, no contractures, Neuro: CN II-XI grossly intact, no gross focal neuro deficits Psych: Alert, oriented, appropriate affect Assessment/Plan: 79-year-old male with PMH of CAD status post 3 stents and Afib on Eliquis and 2 times small bowel obstruction status post bariatric surgery in 1999 presented to the ER with episode of sudden onset abdominal pain. #Abdominal pain, suspected due to small bowel obstruction history of bariatric surgery complicated by bowel obstruction requiring adhesiolysis 2 times in the past Consult general surgery Continue n.p.o. diet Continue with IV normal saline at 130 cc/h Continue Dilaudid 1 mg IVP every 3 hours as needed for pain Continue Zofran 4 mg IVP every 8 hours as needed for nausea and vomiting lactic acid 2.4, continue with IV fluids and trend LA sodium 140, potassium 4.3, unremarkable #Hyperglycemia Glucose 168 Patient reports no past medical history of diabetes mellitus Check HbA1c Started on sliding scale short acting insulin Continue monitor blood glucose #Leukocytosis, likely reactive to enteritis secondary to SBO WBC 13.7 with neutrophil count 11.2 Continue monitor CBC afebrile monitor off antibiotics for now #Elevated lactic acid, likely due to ischemic changes secondary to SBO Lactic acid 2.4 Continue IV normal saline at 130 cc/h Continue to monitor lactic acid #CKD 2-3 , within baseline BUN 32 and creatinine 1.45 around baseline BUN to creatinine ratio> 20 Continue IV normal saline at 130 cc/h monitor renal function avoid nephrotoxic meds monitor urine output #Elevated alkaline phosphatase, secondary to gallstones in the cystic duct CT abdomen and pelvis shows granular stones in the duct Alkaline phosphatase 133 elevated AST ALT within normal limits Continue to monitor CMP gall stone is a known side effect of bariatric surgery continue to follow up with surgery recommendations #Elevated amylase, likely secondary to SBO Amylase 120 elevated Lipase [address] abdomen and pelvis shows no evidence of pancreatitis #Chronic conditions: CAD status post stents: Resume Lipitor 40 mg p.o. nightly, metoprolol 25 mg p.o. daily, aspirin p.o. daily Paroxysmal A-fib, on Eliquis verify home medications BPH: Resume Flomax 0.4 mg p.o. nightly GERD: Resume omeprazole 20 mg p.o. daily DVT prophylaxis: Heparin 5000 units SQ 3 times daily, normally patient on Eliquis for A-fib on hold for now until evaluated by surgery if cleared and no plans for surgery then continue Eliquis and stop heparin subcu The patient is admitted with an anticipated less than 2 midnight stay for evaluation of small bowel obstruction CODE STATUS: Full code Discussed with: Patient Anticipated discharge place: Home Past Medical History Past Medical History: No Reported History, Coronary Artery Disease (CAD), Chest Pain / Angina History of Any Multi-Drug Resistant Organisms: None Reported Past Surgical History: Unable to Obtain, Bariatric Surgery, Heart Catheterization With Stent, Joint Replacement Additional Past Surgical History / Comment(s): right knee replacement, bariatric 2000, bowel blockage x2 Past Anesthesia/Blood Transfusion Reactions: No Reported Reaction Past Psychological History: No Psychological Hx Reported Smoking Status: Never smoker Past Alcohol Use History: None Reported Past Drug Use History: None Reported Medications and Allergies Home Medications Medication Instructions Recorded Confirmed Type Amiodarone HCl [Pacerone] 100 mg PO DAILY 02/26/21 02/26/21 History Atorvastatin [Lipitor] 40 mg PO HS 02/26/21 02/26/21 History Clopidogrel Bisulfate [Plavix] 75 mg PO DAILY 02/26/21 02/26/21 History Isosorbide Mononitrate ER [Imdur] 30 mg PO DAILY 02/26/21 02/26/21 History Metoprolol Succinate [Toprol XL] 25 mg PO DAILY 02/26/21 02/26/21 History Omeprazole 20 mg PO DAILY 02/26/21 02/26/21 History Ranolazine [Ranolazine ER] 500 mg PO BID 02/26/21 02/26/21 History Tamsulosin HCl [Flomax] 0.4 mg PO HS 02/26/21 02/26/21 History buPROPion HCL [Wellbutrin XL] 300 mg PO DAILY 02/26/21 02/26/21 History Albuterol Inhaler [Ventolin Hfa 2 puff INHALATION RT-QID PRN #1 02/28/21 Rx Inhaler] inhaler Apixaban [Eliquis] 5 mg PO BID tab 02/28/21 Rx Ascorbic Acid [Vitamin C] 1,000 mg PO DAILY #30 tab 02/28/21 Rx Cholecalciferol [Vitamin D3 (25 75 mcg PO DAILY #60 tablet 02/28/21 Rx Mcg = 1000 Iu)] Melatonin 5 mg PO HS #30 tablet 02/28/21 Rx Zinc Sulfate [Orazinc] 220 mg PO DAILY #30 cap 02/28/21 Rx Allergies Allergy/AdvReac Type Severity Reaction Status Date / Time carisoprodol [From [email or web address]] Allergy Anaphylaxis Verified 05/27/24 00:20 Physical Exam Vitals: Vital Signs Temp Pulse Resp BP Pulse Ox 05/27/24 00:56 56 L 17 131/65 94 L 05/27/24 00:15 97.5 F L 63 20 99 Intake and Output 05/26/24 05/26/24 05/27/24 14:59 22:59 06:59 Other: Weight 117.934 kg Results CBC & Chem 7: 05/27/24 00:50 05/27/24 00:50 Labs: Abnormal Lab Results - Last 24 Hours (Table) 05/27/24 05/27/24 05/27/24 Range/Units 00:50 00:50 00:50 WBC 13.7 H (3.8-10.6) k/uL Neutrophils # 11.2 H (1.3-7.7) k/uL Chloride 110 H (98-107) mmol/L Carbon Dioxide 20 L (22-30) mmol/L BUN 32 H (9-20) mg/dL Creatinine 1.45 H (0.66-1.25) mg/dL Glucose 168 H (74-99) mg/dL Plasma Lactic Acid Fuad 2.4 H* (0.7-2.0) mmol/L Alkaline Phosphatase 133 H (38-126) U/L Amylase 120 H (30-110) U/L Assessment and Plan Assessment: I have seen and evaluated the patient today. I Discussed the case with the resident and agree with the resident's findings I edited the assessment and plan as necessary as documented in the resident's note. 71-year-old male with history of bariatric surgery and complicated by bowel obstruction twice requiring surgical repair for adhesiolysis. Presenting with few hour history of sudden acute abdominal pain and distention repeated vomiting patient was concerned for another episode of bowel obstruction. Imaging showed no distinct focal point of transition but diffuse enteritis in the small bowel. With distal fecal content. This morning patient reports that he passed large amount of gas he denies any ongoing vomiting and reports that the pain has resolved he has not passed bowel movement yet his last bowel movement was yesterday morning Plan is to keep the patient n.p.o. for surgery evaluation Patient has paroxysmal A-fib on Eliquis , hold Eliquis for now in anticipation of possible surgery. If cleared by surgery team then resume Eliquis for A-fib stroke prophylaxis Patient with history of CAD status post stents currently on aspirin only. hold aspirin until cleared by surgery
[2024-05-27] MEDS ORDERED: ALBUTEROL NEBULIZED 2.5 MG/3 ML INHALATION PRN (04:52)
[2024-05-27 06:33] LABS: Appearance,Urine Cloudy (Clear); Bacteria,Urine Many /hpf; Bilirubin,Urine Negative (Negative); Blood,Urine Negative (Negative); Color,Urine Light Yellow; Glucose,Urine (UA) Negative (Negative); Hyaline Casts,Urine 20 /lpf (0-2); Ketones,Urine Negative (Negative); Leukocyte Esterase,Urine Large (Negative); Mucus,Urine Few /hpf; Nitrite,Urine Positive (Negative); PH, Urine 5.5 (5.0-8.0); Protein,Urine Trace (Negative); RBC,Urine 2 /hpf (0-5); Urobilinogen,Urine <2.0 mg/dL (<2.0); WBC,Urine 90 /hpf (0-5)
[2024-05-27] MEDS: INSULIN ASPART (NovoLOG) 100 UNIT/ML VIAL SQ SCH (06:35)
[2024-05-27] MEDS ORDERED: PANTOPRAZOLE 40 MG/10 ML VIAL IV SCH (09:00)
[2024-05-27] MEDS ORDERED: APIXABAN 5 MG TAB PO SCH (09:00)
[2024-05-27] MEDS: PANTOPRAZOLE 40 MG TABLET PO SCH (09:25)
[2024-05-27] MEDS: HEPARIN SODIUM,PORCINE 5,000 UNIT/ML 1 ML VIAL SQ SCH (09:25)
[2024-05-27] MEDS: METOPROLOL SUCCINATE (ER) 25 MG TAB.ER.24H PO SCH (09:25)
--- NOTE | 2024-05-27 10:14 | P.GSCN ---
History of Present Illness Consult date: 05/27/24 Reason for Consult: Possible small bowel obstruction History of present illness: This is a 79-year-old male who was admitted through the emergency room with complaints of crampy abdominal pain. Patient nausea vomiting. Patient has a previous history of small bowel resection for small bowel obstruction. Patient had 2 previous laparotomies. Patient states that last night he had a bowel movement and flatus. He currently feels well. He wants to try diet. Past Medical History Past Medical History: No Reported History, Coronary Artery Disease (CAD), Chest Pain / Angina History of Any Multi-Drug Resistant Organisms: None Reported Past Surgical History: Unable to Obtain, Bariatric Surgery, Heart Catheterization With Stent, Joint Replacement Additional Past Surgical History / Comment(s): right knee replacement, bariatric 2000, bowel blockage x2 Past Anesthesia/Blood Transfusion Reactions: No Reported Reaction Date of Last Stent Placement:: 2015 Past Psychological History: No Psychological Hx Reported Smoking Status: Never smoker Past Alcohol Use History: None Reported Past Drug Use History: None Reported Medications and Allergies Home Medications Medication Instructions Recorded Confirmed Type Amiodarone HCl [Pacerone] 100 mg PO DAILY 02/26/21 02/26/21 History Atorvastatin [Lipitor] 40 mg PO HS 02/26/21 02/26/21 History Clopidogrel Bisulfate [Plavix] 75 mg PO DAILY 02/26/21 02/26/21 History Isosorbide Mononitrate ER [Imdur] 30 mg PO DAILY 02/26/21 02/26/21 History Metoprolol Succinate [Toprol XL] 25 mg PO DAILY 02/26/21 02/26/21 History Omeprazole 20 mg PO DAILY 02/26/21 02/26/21 History Ranolazine [Ranolazine ER] 500 mg PO BID 02/26/21 02/26/21 History Tamsulosin HCl [Flomax] 0.4 mg PO HS 02/26/21 02/26/21 History buPROPion HCL [Wellbutrin XL] 300 mg PO DAILY 02/26/21 02/26/21 History Albuterol Inhaler [Ventolin Hfa 2 puff INHALATION RT-QID PRN #1 02/28/21 Rx Inhaler] inhaler Apixaban [Eliquis] 5 mg PO BID tab 02/28/21 Rx Ascorbic Acid [Vitamin C] 1,000 mg PO DAILY #30 tab 02/28/21 Rx Cholecalciferol [Vitamin D3 (25 75 mcg PO DAILY #60 tablet 02/28/21 Rx Mcg = 1000 Iu)] Melatonin 5 mg PO HS #30 tablet 02/28/21 Rx Zinc Sulfate [Orazinc] 220 mg PO DAILY #30 cap 02/28/21 Rx Allergies Allergy/AdvReac Type Severity Reaction Status Date / Time carisoprodol [From [facility]] Allergy Anaphylaxis Verified 05/27/24 00:20 Surgical - Exam Vital Signs Temp Pulse Resp Pulse Ox 97.5 F L 63 20 99 05/27/24 00:15 05/27/24 00:15 05/27/24 00:15 05/27/24 00:15 - General well developed, well nourished, no distress - Eyes PERRL - ENT normal pinna - Neck no masses - Respiratory normal expansion - Cardiovascular Rhythm: regular - Abdomen Abdomen: soft, non tender Results - Labs 05/27/24 00:50 05/27/24 00:50 Abnormal Lab Results - Last 24 Hours (Table) 05/27/24 05/27/24 05/27/24 Range/Units 00:50 00:50 00:50 WBC 13.7 H (3.8-10.6) k/uL Neutrophils # 11.2 H (1.3-7.7) k/uL Chloride 110 H (98-107) mmol/L Carbon Dioxide 20 L (22-30) mmol/L BUN 32 H (9-20) mg/dL Creatinine 1.45 H (0.66-1.25) mg/dL Glucose 168 H (74-99) mg/dL Hemoglobin A1c (<=6.0) % Plasma Lactic Acid Fuad 2.4 H* (0.7-2.0) mmol/L Alkaline Phosphatase 133 H (38-126) U/L Amylase 120 H (30-110) U/L Urine Protein (Negative) Ur Leukocyte Esterase (Negative) Urine WBC (0-5) /hpf Urine WBC Clumps (None) /hpf Urine Bacteria (None) /hpf Hyaline Casts (0-2) /lpf Urine Mucus (None) /hpf 05/27/24 05/27/24 Range/Units 00:50 05:20 WBC (3.8-10.6) k/uL Neutrophils # (1.3-7.7) k/uL Chloride (98-107) mmol/L Carbon Dioxide (22-30) mmol/L BUN (9-20) mg/dL Creatinine (0.66-1.25) mg/dL Glucose (74-99) mg/dL Hemoglobin A1c 6.2 H (<=6.0) % Plasma Lactic Acid Fuad (0.7-2.0) mmol/L Alkaline Phosphatase (38-126) U/L Amylase (30-110) U/L Urine Protein Trace H (Negative) Ur Leukocyte Esterase Large H (Negative) Urine WBC 90 H (0-5) /hpf Urine WBC Clumps Rare H (None) /hpf Urine Bacteria Many H (None) /hpf Hyaline Casts 20 H (0-2) /lpf Urine Mucus Few H (None) /hpf Diabetes panel 05/27/24 05/27/24 Range/Units 00:50 00:50 Sodium 140 (137-145) mmol/L Potassium 4.3 (3.5-5.1) mmol/L Chloride 110 H (98-107) mmol/L Carbon Dioxide 20 L (22-30) mmol/L BUN 32 H (9-20) mg/dL Creatinine 1.45 H (0.66-1.25) mg/dL Glucose 168 H (74-99) mg/dL Hemoglobin A1c 6.2 H (<=6.0) % Calcium 10.1 (8.4-10.2) mg/dL AST 37 (17-59) U/L ALT 34 (4-49) U/L Alkaline Phosphatase 133 H (38-126) U/L Total Protein 6.4 (6.3-8.2) g/dL Albumin 4.0 (3.5-5.0) g/dL Calcium panel 05/27/24 Range/Units 00:50 Calcium 10.1 (8.4-10.2) mg/dL Albumin 4.0 (3.5-5.0) g/dL Pituitary panel 05/27/24 Range/Units 00:50 Sodium 140 (137-145) mmol/L Potassium 4.3 (3.5-5.1) mmol/L Chloride 110 H (98-107) mmol/L Carbon Dioxide 20 L (22-30) mmol/L BUN 32 H (9-20) mg/dL Creatinine 1.45 H (0.66-1.25) mg/dL Glucose 168 H (74-99) mg/dL Calcium 10.1 (8.4-10.2) mg/dL Adrenal panel 05/27/24 Range/Units 00:50 Sodium 140 (137-145) mmol/L Potassium 4.3 (3.5-5.1) mmol/L Chloride 110 H (98-107) mmol/L Carbon Dioxide 20 L (22-30) mmol/L BUN 32 H (9-20) mg/dL Creatinine 1.45 H (0.66-1.25) mg/dL Glucose 168 H (74-99) mg/dL Calcium 10.1 (8.4-10.2) mg/dL Total Bilirubin 0.7 (0.2-1.3) mg/dL AST 37 (17-59) U/L ALT 34 (4-49) U/L Alkaline Phosphatase 133 H (38-126) U/L Total Protein 6.4 (6.3-8.2) g/dL Albumin 4.0 (3.5-5.0) g/dL Assessment and Plan Assessment: Patient may have a resolved small bowel obstruction. Patient was started on full liquid diet.
[2024-05-27 12:41] LABS: Glucose,Whole Blood 141 mg/dL (70-110)
--- NOTE | 2024-05-27 13:06 | US ---
EXAMINATION TYPE: US renals and bladder DATE OF EXAM: 05/27/2024 COMPARISON: CT CLINICAL INDICATION: Male, 79 years old with history of r/o hydronephrosis, nephrolithiasis; Portable inpatient exam EXAM MEASUREMENTS: Right Kidney: 9.1 x 5.3 x 4.8 cm Left Kidney: 11.4 x 4.9 x 5.4 cm Right Kidney: No hydronephrosis or masses seen, appears smaller in size compared to contralateral kid glen Left Kidney: No hydronephrosis or masses seen Bladder: Anechoic, moderately distended Bilateral Jets not seen There is no evidence for hydronephrosis at this point in time. No nephrolithiasis is seen. No rose marie s are identified. The urinary bladder is anechoic. Bilateral ureteral jets are seen. IMPRESSION: 1. No evidence for obstructive uropathy. 2. Asymmetrically decreased size of the right kidney compared to left.
[2024-05-27] MEDS ORDERED: FLUTICASONE NASAL 50MCG/SPRAY 16GM BTL EA NOSTRIL PRN (14:33)
[2024-05-27 16:01] LABS: Glucose,Whole Blood 85 mg/dL (70-110)
[2024-05-27 20:20] VITALS: TEMP 97.6
[2024-05-27 21:20] LABS: Glucose,Whole Blood 91 mg/dL (70-110)
[2024-05-27] MEDS: ATORVASTATIN 40 MG TAB PO SCH (21:43)
[2024-05-27] MEDS: traZODone HCL 50 MG TAB PO SCH (21:43)
[2024-05-27] MEDS: TAMSULOSIN 0.4 MG CAP.ER.24H PO SCH (21:43)
[2024-05-27] MEDS: MIRTAZAPINE 15 MG TAB PO SCH (21:43)
[2024-05-27] MEDS: MELATONIN 5 MG TABLET PO SCH (21:43)
[2024-05-28 02:42] VITALS: PULSE 48
[2024-05-28 05:40] LABS: Glucose,Whole Blood 97 mg/dL (70-110)
[2024-05-28 07:57] VITALS: BP 100/63; RESP 16
[2024-05-28 09:08] LABS: BUN/Creat Ratio 18.25 Ratio (12.00-20.00); Blood Urea Nitrogen 21.9 mg/dL (9.0-27.0); Chloride 114 mmol/L (96-109); Glucose 97 mg/dL (70-110); Magnesium 1.7 mg/dL (1.5-2.4); Phosphorus 3.1 mg/dL (2.4-5.1); Potassium 3.8 mmol/L (3.5-5.5); Sodium 143 mmol/L (135-145)
[2024-05-28 09:09] LABS: ALT 25 U/L (10-49); AST 22 U/L (14-35); Albumin 3.2 g/dL (3.8-4.9); Albumin/Globulin Ratio 2.29 Ratio (1.60-3.17); Alkaline Phosphatase 98 U/L (41-126); Calcium 8.9 mg/dL (8.7-10.3); Globulin 1.4 g/dL (1.6-3.3); Total Bilirubin 0.5 mg/dL (0.3-1.2); Total Protein 4.6 g/dL (6.2-8.2)
[2024-05-28 09:21] LABS: Basophils # (A) 0.05 X 10*3/uL (0.00-0.10); Basophils % (A) 0.7 %; Eosinophils # (A) 0.26 X 10*3/uL (0.04-0.35); Eosinophils % (A) 3.4 %; HCT 32.2 % (39.6-50.0); HGB 10.3 g/dL (13.0-17.0); Lymphocytes # (A) 2.18 X 10*3/uL (0.90-5.00); Lymphocytes % (A) 28.8 %; MCH 30.7 pg (27.0-32.0); MCV 96.1 FL (80.0-97.0); Mean Platelet Volume 9.9 FL (9.5-12.2); Monocytes # (A) 0.96 X 10*3/uL (0.20-1.00); Monocytes % (A) 12.7 %; NRBC Per 100 WBC 0 X 10*3/uL (0.00-0.01); Neutrophils # (A) 4.08 X 10*3/uL (1.80-7.70); Neutrophils % (A) 53.9 %; Platelet Count 202 X 10*3/uL (140-440); RBC 3.35 X 10*6/uL (4.40-5.60); RDW 13.4 % (11.5-14.5); WBC 7.57 X 10*3/uL (4.50-10.00)
[2024-05-28] MEDS: CHOLECALCIFEROL 125 MCG (5000 IU) TABLET PO SCH (09:46)
[2024-05-28] MEDS: buPROPion XL 150 MG TAB.ER.24H PO SCH (09:46)
[2024-05-28] MEDS: AMIODARONE 100 MG TAB PO SCH (09:46)
--- NOTE | 2024-05-28 11:10 | P.PN ---
Subjective Progress Note Date: 05/28/24 CHIEF COMPLAINT: Small bowel obstruction HISTORY OF PRESENT ILLNESS: Patient reports no abdominal pain. He is having bowel movements and flatus. Denies any nausea or vomiting. Tolerating full liquid diet. Afebrile. WBC 7.57 PHYSICAL EXAM: VITAL SIGNS: Reviewed. GENERAL: Well-developed in no acute distress. ABDOMEN: Soft. Nondistended. Nontender. ASSESSMENT: 1. Small bowel obstruction resolved PLAN: -Patient can be discharged from surgical standpoint -Advance diet regular Physician Explosion Welder note has been reviewed by physician. Signing provider agrees with the documented findings, assessment, and plan of care. Objective - Vital Signs Vital signs: Vital Signs Temp 97.6 F 05/28/24 07:02 Pulse 48 L 05/28/24 07:02 Resp 16 05/28/24 11:07 BP 100/63 05/28/24 07:02 Pulse Ox 96 05/28/24 07:02 FiO2 Intake & Output 05/27/24 05/28/24 05/28/24 18:59 06:59 18:59 Other: Voiding Method Toilet Toilet # Voids 1 - Labs CBC & Chem 7: 05/28/24 05:00 05/28/24 05:00 Labs: Abnormal Lab Results - Last 24 Hours (Table) 05/27/24 05/28/24 05/28/24 Range/Units 12:39 05:00 05:00 RBC 3.35 L (4.40-5.60) X 10*6/uL Hgb 10.3 L (13.0-17.0) g/dL Hct 32.2 L (39.6-50.0) % Chloride 114 H (96-109) mmol/L POC Glucose (mg/dL) 141 H (70-110) mg/dL Total Protein 4.6 L (6.2-8.2) g/dL Albumin 3.2 L (3.8-4.9) g/dL Globulin 1.4 L (1.6-3.3) g/dL
[2024-05-28 11:43] LABS: Glucose,Whole Blood 84 mg/dL (70-110)
--- NOTE | 2024-05-28 16:07 | P.DS ---
Providers Date of admission: 05/27/24 02:52 Expected date of discharge: 05/28/24 Attending physician: Hero Terrell MD Consults: 05/28/24 07:45 Consult Physician Routine Consulting Provider: Matthew Malik Consult Reason/Comments: sbo Do you want consulting provider notified?: Already Contacted Primary care physician: [facility] Course: #Abdominal pain, due to small bowel obstruction #Hyperglycemia in the prediabetic, A1c was 6.2%, PCP can consider starting metformin if deemed appropriate #CKD 2-3 , within baseline #Elevated alkaline phosphatase, secondary to gallstones in the cystic duct #Elevated amylase, likely secondary to SBO #Chronic conditions: CAD status post stents: Resume Lipitor 40 mg p.o. nightly, metoprolol 25 mg p.o. daily, aspirin p.o. daily Paroxysmal A-fib, on Eliquis verify home medications BPH: Resume Flomax 0.4 mg p.o. nightly GERD: Resume omeprazole 20 mg p.o. daily Patient is a 79-year-old male with PMH of CAD status post 3 stents, right knee replacement, Afib on eliquis, hypertension, hyperlipidemia, BPH, GERD presented to the ER with episode of sudden onset abdominal pain that started around [address] abdomen and pelvis shows diffuse distention of the small bowel throughout the abdomen and pelvis with fluid distention proximally and distention with retained fecal appearing material and several small bowel loops in the inferior abdomen and pelvis. Reports show there is a concern for a subtle developing distal small bowel obstruction. No free intraperitoneal fluid, no abscess or pneumoperitoneum. Laboratory evaluation shows lactic acid 2.4, WBC 13.7 with neutrophil count of 11.2, hemoglobin 13.3, hematocrit 42.0, sodium 140, potassium 4.3, chloride 110, bicarb 20, BUN 32, creatinine 1.45, EGFR 46, glucose 168, AST 37, ALT 34, alkaline phosphatase 133, amylase 120, lipase of 283. On admission, patient's vitals were: Tmax 97.5 F, heart rate 46, respiration rate 17, BP 131/65, oxygen saturation 94% on room air. He was admitted to the hospital with surgery consultation, noted to have resolution of his abdominal pain by the following day. Patient's diet was advanced and patient tolerated this well. He also noted to have multiple episodes of passing flatus and reported feeling back to baseline. He was subsequently discharged home with surgical clearance and advised to follow-up with his primary care physician. Notably, his urinalysis was positive for leukocyte esterase, white blood cells, but he had no symptoms consistent with UTI and this was deemed to be asymptomatic bacteriuria. I spent 38 minutes coordinating this discharge Gen: In NAD, non-toxic HEENT: normocephalic, atraumatic, hearing acuity is intant, mucous membranes moist CVS: perfusing all extremities well, no pitting edema, Respiratory: symmetric chest expansion, no accessory muscle use, GI: soft, NTTP, ND, : no suprapubic tenderness, no CVA tenderness MSK/Derm: no rashes, cyanosis Neuro: CN II-XII intact, no motor weakness, Psych: cooperative, euthymic mood, judgment and insight is intact Patient Condition at Discharge: Good Plan - Discharge Summary Discharge Rx Participant: Yes New Discharge Prescriptions: Continue Omeprazole 20 mg PO BID Atorvastatin [Lipitor] 40 mg PO HS Zinc Sulfate [Orazinc] 220 mg PO DAILY #30 cap Mirtazapine [Remeron] 15 mg PO HS Ipratropium [place] 0.06%Nasal [Atrovent Nasal 0.06%] 2 spray EA NOSTRIL TID PRN PRN Reason: Allergy Symptoms Fluticasone Nasal [place] [Flonase Nasal [place]] 2 spr EA NOSTRIL DAILY PRN PRN Reason: Allergy Symptoms Cholecalciferol [Vitamin D3 (125 Mcg = 5000 Iu)] 125 mcg PO DAILY Vitamin A(Unknown Dose) 1 cap PO DAILY Amiodarone HCl [Pacerone] 100 mg PO DAILY Metoprolol Succinate [Toprol XL] 25 mg PO DAILY Tamsulosin HCl [Flomax] 0.4 mg PO HS Apixaban [Eliquis] 5 mg PO BID tab traZODone HCL [Desyrel] 50 mg PO HS hydrOXYzine HCL [Atarax] 25 mg PO HS Plecanatide [Trulance] 3 mg PO HS buPROPion HCL [Wellbutrin XL] 150 mg PO DAILY Discharge Medication List Amiodarone HCl [Pacerone] 100 mg PO DAILY 02/26/21 [History] Atorvastatin [Lipitor] 40 mg PO HS 02/26/21 [History] Metoprolol Succinate [Toprol XL] 25 mg PO DAILY 02/26/21 [History] Omeprazole 20 mg PO BID 02/26/21 [History] Tamsulosin HCl [Flomax] 0.4 mg PO HS 02/26/21 [History] Apixaban [Eliquis] 5 mg PO BID tab 02/28/21 [Rx] Zinc Sulfate [Orazinc] 220 mg PO DAILY #30 cap 02/28/21 [Rx] Cholecalciferol [Vitamin D3 (125 Mcg = 5000 Iu)] 125 mcg PO DAILY 05/27/24 [History] Fluticasone Nasal [place] [Flonase Nasal [place]] 2 spr EA NOSTRIL DAILY PRN 05/27/24 [History] Ipratropium [place] 0.06%Nasal [Atrovent Nasal 0.06%] 2 spray EA NOSTRIL TID PRN 05/27/24 [History] Mirtazapine [Remeron] 15 mg PO HS 05/27/24 [History] Plecanatide [Trulance] 3 mg PO HS 05/27/24 [History] Vitamin A(Unknown Dose) 1 cap PO DAILY 05/27/24 [History] buPROPion HCL [Wellbutrin XL] 150 mg PO DAILY 05/27/24 [History] hydrOXYzine HCL [Atarax] 25 mg PO HS 05/27/24 [History] traZODone HCL [Desyrel] 50 mg PO HS 05/27/24 [History] Follow up Appointment(s)/Referral(s): Rodrigo Pace MD [Primary Care Provider] - 06/12/24 11:30 am Patient Instructions/Handouts: Bowel Obstruction (DC) Discharge Disposition: HOME SELF-CARE
== END 2024-05-28 12:02 | disposition home or self-care (01) | DRG 390 ==
LOC: EC 00:02 → 4SSUR 02:52
PROVIDERS: ADMIT Internal Medicine; ATTEND Internal Medicine
DX: K56.609 Unspecified intestinal obstruction, unspecified as to partial versus complete obstruction (principal); K80.50 Calculus of bile duct without cholangitis or cholecystitis without obstruction; I12.9 Hypertensive chronic kidney disease with stage 1 through stage 4 chronic kidney disease, or unspecified chronic kidney disease; I48.0 Paroxysmal atrial fibrillation; N18.2 Chronic kidney disease, stage 2 (mild); K52.9 Noninfective gastroenteritis and colitis, unspecified; E78.5 Hyperlipidemia, unspecified; I25.10 Atherosclerotic heart disease of native coronary artery without angina pectoris; N40.0 Benign prostatic hyperplasia without lower urinary tract symptoms; K21.9 Gastro-esophageal reflux disease without esophagitis; R73.03 Prediabetes; R73.9 Hyperglycemia, unspecified; R82.71 Bacteriuria; Z79.01 Long term (current) use of anticoagulants; Z79.899 Other long term (current) drug therapy; Z95.5 Presence of coronary angioplasty implant and graft; Z96.651 Presence of right artificial knee joint; Z98.84 Bariatric surgery status; Z88.8 Allergy status to other drugs, medicaments and biological substances
CPT/HCPCS: 36415; 74176; 76770; 80053; 81001; 82150; 83036; 83605; 83690; 83735; 84100; 85025; 85610; 85730; 96361; 96374; 96375; 99285